=== PATIENT | female | born 1980 | race Asian ===

== ENCOUNTER 2022-03-06 16:12 | Emergency (ER) | payer BC, SELFPAY ==
--- NOTE | ~2022-03-06 | CT_ITS ---
EXAMINATION: CT ABDOMEN AND PELVIS WITH CONTRAST CLINICAL INFORMATION: Abdominal pain. Possible colitis. Possible cholecystitis. COMPARISON: None TECHNIQUE: Multidetector volumetric images were obtained from the superior aspect of the liver through the pubic symphysis following administration 85 mL of Omnipaque 350 intravenous contrast. Sagittal and coronal reformatted images were obtained on the technologist's workstation. Oral contrast: No This CT examination was performed using dose optimization techniques as appropriate, variously including the following: *Automated exposure control *Adjustment of mA and/or kV according to patient size (this includes techniques or standardized protocols for targeted exams where dose is matched to indication/reason for exam; i.e. extremities or head) *Use of iterative reconstruction technique DLP: 1027 mGy-cm FINDINGS: LUNG BASES: The visualized lung bases are unremarkable. LIVER, GALLBLADDER, AND BILIARY TREE: The liver is normal in size, shape, and attenuation. No focal hepatic lesion or biliary ductal dilatation is present. The gallbladder is unremarkable with no evidence of radiopaque gallstones, gallbladder wall thickening, or obvious pericholecystic inflammatory changes. PANCREAS: Unremarkable. SPLEEN: Unremarkable. ADRENAL GLANDS: Unremarkable. KIDNEYS AND URETERS: The right kidney demonstrates anterior rotation. Bilaterally symmetric nephrographic enhancement is noted. Making allowances for minimal early contrast excretion, no definitive urolithiasis visualized. No hydronephrosis or perinephric inflammatory changes. No ureterectasis. BLADDER: Unremarkable. GASTROINTESTINAL TRACT: The small and large bowel are unremarkable. The appendix is unremarkable. No free intraperitoneal fluid or gas collections. Normal sigmoid and small bowel mesenteries. Normal stomach. ABDOMINAL WALL: No significant hernia is appreciated. LYMPH NODES: Normal. VASCULAR: Unremarkable. PELVIC VISCERA: A 2.3 cm diameter rounded low-density focus suspicious for a unilocular cyst is present in the left ovary and does not warrant additional imaging follow-up on the basis of this examination. Uterus is grossly normal in appearance. OSSEOUS STRUCTURES: Minimal multilevel anterior endplate osteophytosis of the visualized thoracic and lumbar spine. CT/CT abdomen pelvis w con IMPRESSION: IV contrast-enhanced CT the abdomen pelvis: *No acute abnormalities identified. *Normal appearance of the gallbladder and biliary system. Of note, CT may be insensitive in the detection of cholelithiasis and acute cholecystitis. As clinically indicated, consider further evaluation with right upper quadrant abdominal ultrasound to assess for cholelithiasis and cholecystitis. No evidence of colitis. Normal appendix. No urolithiasis.
[2022-03-06 16:17] VITALS: BP 113/80; PULSE 98; RESP 18; TEMP 36.9; O2SAT 97; BMI 35.2
[2022-03-06 20:17] LABS: Basophils Percent Auto 0.3 % (0-2); Eosinophils Absolute Auto 0.3 X10*3/uL (0.0-0.4); Eosinophils Percent Auto 2.3 % (0-4); Hemoglobin 13.2 g/dl (12.0-16.0); Imm Gran Abs Auto 0.03 X10*3/uL (0.00-0.03); Imm Gran Pct Auto 0.3 % (0.0-0.4); Lymphocytes Absolute Auto 3.6 X10*3/uL (1.2-4.9); Lymphocytes Percent Auto 30.2 % (20-40); MANUAL DIFF FLAG NO; Mean Corpuscular HGB Conc 33.8 g/dl (31.0-35.0); Mean Corpuscular Hemoglobin 28.2 pg (27.0-33.0); Mean Corpuscular Volume 83.3 fL (80.0-98.0); Mean Platelet Volume 10.1 fL (9.4-12.3); Monocytes Absolute Auto 0.8 X10*3/uL (0.1-1.2); Monocytes Percent Auto 6.4 % (2-11); Neutrophils Absolute Auto 7.2 x10*3/uL (2.0-8.3); Neutrophils Percent Auto 60.5 % (45-73); Platelet Count 324 X10*3/uL (160-400); Red Blood Count 4.68 X10*6/uL (4.20-5.50); Red Cell Distribution Width 12.5 % (11.0-16.0); White Blood Count 11.9 X10*3/uL (4.8-10.8)
[2022-03-06 20:23] LABS: Appearance Urine CLEAR; Color Urine DK YELLOW; Glucose Urine UA NEG (NEG); Leukocyte Esterase Urine TRACE (NEG); Nitrite Urine NEG (NEG); PH 5.5 (5.0-8.0); Specific Gravity - Urine >= 1.030 (1.005-1.025); Urine Blood NEG (NEG); Urine Ketones NEG (NEG); Urine Protein NEG (NEG-TRACE)
[2022-03-06 20:26] LABS: UPreg QC Valid YES; Urine Pregnancy NEGATIVE (NEGATIVE)
[2022-03-06 20:32] LABS: Alanine Aminotransferase 30 U/L (0-31); Alkaline Phosphatase 74 U/L (39-117); Anion Gap 12 (12-20); Aspartate Amino Transferase 16 U/L (5-31); Bilirubin Total 0.4 mg/dL (0.0-1.0); Blood Urea Nitrogen 10 mg/dL (9-16); Calcium 10.3 mg/dL (8.4-10.2); Carbon Dioxide 23 mmol/L (22-29); Chloride 108 mmol/L (96-108); Estimated Glomerular Filt Rate > 60; Glucose Random 99 mg/dL (60-115); Potassium 4.1 mmol/L (3.3-5.1); Sodium 139 mmol/L (135-145); Total Protein 7.3 g/dL (6.5-8.0)
[2022-03-06 20:50] LABS: Bacteria Urine TRACE /LPF; RBC Urine 0-2 /HPF (0); Squamous Epithelial Cell Urine 1+ /LPF
--- NOTE | 2022-03-06 21:52 | ED.GENADULT ---
HPI - General Adult General Chief complaint: Nausea/Vomiting/Diarrhea Stated complaint: Cramping Nausea X 3 Days Time Seen by Provider: 03/06/22 18:09 Source: patient Mode of arrival: ambulatory Limitations: no limitations History of Present Illness HPI narrative: 42-year-old female with history of IBS for the past 2 years presents to ED for epigastric pain, acid burning sensation, nausea, vomiting and abdominal generalized pain with constipation for the past 3 days. patient states no relief with pepcid, Pepto-Bismol, or Tylenol. Patient states no dysuria, hematuria, flank pain, fever, or chills. Patient had bowel movements this morning. Related Data Previous Rx's Medication Instructions Recorded dicyclomine 20 mg tablet 20 mg PO QID 7 Days #28 tab 03/07/22 famotidine 20 mg tablet (Pepcid) 20 mg PO BID 10 Days #20 tab 03/07/22 Allergies Allergy/AdvReac Type Severity Reaction Status Date / Time amoxicillin Allergy Intermediate Hives Verified 03/06/22 16:17 Sulfa (Sulfonamide Allergy Intermediate Hives Verified 03/06/22 16:17 Antibiotics) aloe Allergy Mild Rash Verified 03/06/22 16:17 latex Allergy Mild Rash Verified 03/06/22 16:17 Review of Systems Review of Systems: Generalized cramping, abdominal pain, abdominal bloating, nausea, acid burning sensation, vomiting Yes all other systems are reviewed and are negative PMFSH Social History Social History Advance Directives: No Advance Directives Information Provided: Yes Patient : No Physical Exam ED Vital Signs: Vital Signs - 24 hr 03/06/22 16:17 03/07/22 00:19 Temperature 98.4 F 98.3 F Pulse Rate 98 81 Respiratory Rate 18 19 Blood Pressure 113/80 112/81 Pulse Oximetry 97 99 BMI result Body Mass Index 35.2 Const General: cooperative, healthy appearing, comfortable, no acute distress, well developed, alert, awake and Physically active Orientation/consciousness: patient oriented x3 HENMT Head: Yes normal to inspection, Yes No palpable skull fracture present, Yes normocephalic, Yes atraumatic and No abrasion Eyes General: appearance normal, both eyes and all related structures Neck Neck: Yes normal visual inspection, Yes full ROM, Yes no lymphadenopathy, Yes no meningeal signs, Yes trachea midline, Yes supple, No anterior neck swelling and No tender Chest Chest palpation & inspection: normal inspection of the chest and normal palpation of entire chest wall Resp Effort & Inspection: normal respiratory effort and able to speak in complete sentences Auscultation: clear to auscultation bilaterally Cardio Jugular venous distension: no JVD Heart sounds: S1 normal heart sound present and S2 normal heart sound present GI Inspection: Yes normal to inspection and No abdominal wall ecchymosis Palpation (GI): Soft to palpation, not firm, Tenderness to palpation present (GI) (generalized), no guarding and not rigid General: No CVA tenderness and Yes no CVA tenderness Back/Spine/Pelvis Back: no CVA tenderness, No CVA tenderness and No back tenderness Skin General skin exam: no rashes or lesions noted and elasticity normal Neuro General: patient oriented x3, gait normal, no meningeal signs and CN's II-XI intact bilaterally Cranial nerves: Yes CN's II-XII intact bilaterally Extrem General: Yes normal to inspection and Yes full ROM Psych Appearance: grossly normal, well kempt and not disheveled Course Course Course Narrative: labs are normal will send for abdominal CT scan. Pepcid, Bentyl, Maalox, and other x-rays ordered. Reevaluation(s) Reevaluation #1: CT scan came back normal. Patient will be discharged with Bentyl and Pepcid. Patient informed to call [employer] for follow-up. Patient not on any distress. Time: 01:45 Medical Decision Making MDM Narrative Medical decision making narrative: abdominal pain. IBS Lab Data Result diagrams: 03/06/22 20:08 03/06/22 20:08 Labs: Lab Results 03/06/22 03/06/22 03/06/22 Range/Units 20:08 20:08 20:08 WBC 11.9 H (4.8-10.8) X10*3/uL RBC 4.68 (4.20-5.50) X10*6/uL Hgb 13.2 (12.0-16.0) g/dl Hct 39.0 (37.0-47.0) % MCV 83.3 (80.0-98.0) fL MCH 28.2 (27.0-33.0) pg MCHC 33.8 (31.0-35.0) g/dl RDW 12.5 (11.0-16.0) % Plt Count 324 (160-400) X10*3/uL MPV 10.1 (9.4-12.3) fL Immature Gran % (Auto) 0.3 (0.0-0.4) % Neut % (Auto) 60.5 (45-73) % Lymph % (Auto) 30.2 (20-40) % [place] % (Auto) 6.4 (2-11) % Eos % (Auto) 2.3 (0-4) % Baso % (Auto) 0.3 (0-2) % Lymph # (Auto) 3.6 (1.2-4.9) X10*3/uL [place] # (Auto) 0.8 (0.1-1.2) X10*3/uL Eos # (Auto) 0.3 (0.0-0.4) X10*3/uL Baso # (Auto) 0.0 (0.0-0.2) X10*3/uL Abs Immat Gran (auto) 0.03 (0.00-0.03) X10*3/uL Absolute Neuts (auto) 7.2 (2.0-8.3) x10*3/uL Absolute Nucleated RBC 0.000 (0.0-0.012) X10*3/uL Nucleated RBC % (auto) 0.0 (0.0-0.2) /100WBC Sodium 139 (135-145) mmol/L Potassium 4.1 (3.3-5.1) mmol/L Chloride 108 (96-108) mmol/L Carbon Dioxide 23 (22-29) mmol/L Anion Gap 12 (12-20) BUN 10 (9-16) mg/dL Creatinine 0.73 (0.5-1.4) mg/dL Estim Creat Clear Calc 112.0 Estimated GFR > 60 Random Glucose 99 (60-115) mg/dL Calcium 10.3 H (8.4-10.2) mg/dL Total Bilirubin 0.4 (0.0-1.0) mg/dL AST 16 (5-31) U/L ALT 30 (0-31) U/L Alkaline Phosphatase 74 (39-117) U/L Troponin I High Sens (<3.5-17.0) ng/L Total Protein 7.3 (6.5-8.0) g/dL Albumin 4.0 (3.5-5.0) g/dL Lipase 33 (8-78) U/L Urine Color DK YELLOW Urine Appearance CLEAR Urine pH 5.5 (5.0-8.0) Ur Specific [place] >= 1.030 H (1.005-1.025) Urine Protein NEG (NEG-TRACE) MG/DL Urine Glucose (UA) NEG (NEG) MG/DL Urine Ketones NEG (NEG) MG/DL Urine Blood NEG (NEG) Urine Nitrite NEG (NEG) Ur Leukocyte Esterase TRACE H (NEG) Urine RBC 0-2 (0) /HPF Urine WBC 1-4 (0-4) /HPF Ur Squamous Epith Cells 1+ /LPF Urine Bacteria TRACE /LPF Urine Test (NEGATIVE) 03/06/22 03/06/22 Range/Units 20:08 23:12 WBC (4.8-10.8) X10*3/uL RBC (4.20-5.50) X10*6/uL Hgb (12.0-16.0) g/dl Hct (37.0-47.0) % MCV (80.0-98.0) fL MCH (27.0-33.0) pg MCHC (31.0-35.0) g/dl RDW (11.0-16.0) % Plt Count (160-400) X10*3/uL MPV (9.4-12.3) fL Immature Gran % (Auto) (0.0-0.4) % Neut % (Auto) (45-73) % Lymph % (Auto) (20-40) % [place] % (Auto) (2-11) % Eos % (Auto) (0-4) % Baso % (Auto) (0-2) % Lymph # (Auto) (1.2-4.9) X10*3/uL [place] # (Auto) (0.1-1.2) X10*3/uL Eos # (Auto) (0.0-0.4) X10*3/uL Baso # (Auto) (0.0-0.2) X10*3/uL Abs Immat Gran (auto) (0.00-0.03) X10*3/uL Absolute Neuts (auto) (2.0-8.3) x10*3/uL Absolute Nucleated RBC (0.0-0.012) X10*3/uL Nucleated RBC % (auto) (0.0-0.2) /100WBC Sodium (135-145) mmol/L Potassium (3.3-5.1) mmol/L Chloride (96-108) mmol/L Carbon Dioxide (22-29) mmol/L Anion Gap (12-20) BUN (9-16) mg/dL Creatinine (0.5-1.4) mg/dL Estim Creat Clear Calc Estimated GFR Random Glucose (60-115) mg/dL Calcium (8.4-10.2) mg/dL Total Bilirubin (0.0-1.0) mg/dL AST (5-31) U/L ALT (0-31) U/L Alkaline Phosphatase (39-117) U/L Troponin I High Sens < 3.5 (<3.5-17.0) ng/L Total Protein (6.5-8.0) g/dL Albumin (3.5-5.0) g/dL Lipase (8-78) U/L Urine Color Urine Appearance Urine pH (5.0-8.0) Ur Specific [place] (1.005-1.025) Urine Protein (NEG-TRACE) MG/DL Urine Glucose (UA) (NEG) MG/DL Urine Ketones (NEG) MG/DL Urine Blood (NEG) Urine Nitrite (NEG) Ur Leukocyte Esterase (NEG) Urine RBC (0) /HPF Urine WBC (0-4) /HPF Ur Squamous Epith Cells /LPF Urine Bacteria /LPF Urine Test NEGATIVE (NEGATIVE) Discharge Plan Discharge Clinical Impression: Abdominal pain, Gastroesophageal reflux disease, Irritable bowel syndrome Patient Disposition: Home, Self-Care Instructions: Irritable Bowel Syndrome (DC), Gastroesophageal Reflux Disease (ED), Abdominal Pain (ED) Additional Instructions: your blood work and CT scan of abdomen came back normal. You will need to follow with [employer] for re-evaluation. Return to the ED for worsening abdominal pain, fever, chills, nausea, vomiting, blood in stool, diarrhea, dysuria, hematuria, or any other concerning symptoms. Prescriptions: New famotidine [Pepcid] 20 mg tablet 20 mg PO BID 10 Days Qty: 20 0RF dicyclomine 20 mg tablet 20 mg PO QID 7 Days Qty: 28 0RF Stand Alone Forms: Work/School Release Print Language: Estonian
[2022-03-06 21:58] LABS: Lipase 33 U/L (8-78)
--- NOTE | 2022-03-06 22:35 | ECG_ITS ---
Test Reason : VOMITING Blood Pressure : / mmHG Vent. Rate : 080 BPM Atrial Rate : 080 BPM P-R Int : 166 ms QRS Dur : 082 ms QT Int : 382 ms P-R-T Axes : 044 004 020 degrees QTc Int : 440 ms Normal sinus rhythm Normal ECG No previous ECGs available Referred By: Junior Parrish Electronically Signed By:BRADLY MANUEL
[2022-03-06] MEDS: Magnesium Hydrox/Alum Hydrox 30 ML ORAL.SUSP PO (22:43)
[2022-03-06] MEDS: Famotidine/PF 20 MG/2 ML VIAL IVPUSH (22:43)
[2022-03-06] MEDS: Dicyclomine HCl 10 MG CAPSULE PO (22:43)
[2022-03-06] MEDS: PHENobarb/Hyoscy/Atropine/Scop 10 ML ELIXIR PO (22:43)
[2022-03-06 23:42] LABS: Troponin-I High Sensitivity < 3.5 ng/L (<3.5-17.0)
[2022-03-07 00:19] VITALS: BP 112/81; PULSE 81; RESP 19; TEMP 36.8; O2SAT 99
[2022-03-07] MEDS: iohexoL 350 MG/ML 100 ML INFUS..BTL 85 ML IV (01:00)
== END 2022-03-07 01:58 | disposition home or self-care (01) ==
PROVIDERS: Physician Assistant; Physician Assistant Medical; Emergency Provider Emergency Medicine
DX: K58.9 Irritable bowel syndrome, unspecified (principal); K21.9 Gastro-esophageal reflux disease without esophagitis; R10.13 Epigastric pain; K59.00 Constipation, unspecified; Z79.899 Other long term (current) drug therapy
CPT/HCPCS: 36415; 74177; 80053; 81001; 81025; 83690; 84484; 85025; 93005; 96374; 99284; Q9967

== ENCOUNTER 2022-04-05 12:00 | Outpatient (REF) | payer BC, SELFPAY ==
[2022-04-05 14:22] LABS: Hematocrit 40.7 % (37.0-47.0); Hemoglobin 13.5 g/dl (12.0-16.0); Mean Corpuscular HGB Conc 33.2 g/dl (31.0-35.0); Mean Corpuscular Hemoglobin 28.5 pg (27.0-33.0); Mean Corpuscular Volume 85.9 fL (80.0-98.0); Mean Platelet Volume 10.7 fL (9.4-12.3); Platelet Count 348 X10*3/uL (160-400); Red Blood Count 4.74 X10*6/uL (4.20-5.50); Red Cell Distribution Width 12.7 % (11.0-16.0); White Blood Count 10.6 X10*3/uL (4.8-10.8)
[2022-04-05 14:36] LABS: Alanine Aminotransferase 27 U/L (0-31); Albumin Level 3.8 g/dL (3.5-5.0); Alkaline Phosphatase 73 U/L (39-117); Anion Gap 13 (12-20); Aspartate Amino Transferase 13 U/L (5-31); Bilirubin Total 0.3 mg/dL (0.0-1.0); Blood Urea Nitrogen 11 mg/dL (9-16); Calcium 9.4 mg/dL (8.4-10.2); Carbon Dioxide 23 mmol/L (22-29); Chloride 107 mmol/L (96-108); Cholesterol 170 mg/dL; Estimated Glomerular Filt Rate > 60; Glucose Fasting 112 mg/dL (60-99); HDL Cholesterol 49 mg/dL; LDL Cholesterol Calculated 91 mg/dl; Potassium 4.4 mmol/L (3.3-5.1); Sodium 139 mmol/L (135-145); Total Protein 7.3 g/dL (6.5-8.0); Triglycerides 154 mg/dL
[2022-04-05 14:59] LABS: TSH reflex Free T4 1.58 uIU/mL (0.32-4.0)
[2022-04-05 15:15] LABS: Folate 19.3 ng/mL (> or = 4.0); Vitamin B12 581 pg/mL (200-900)
== END 2022-04-05 12:01 | disposition home or self-care (01) ==
LOC: HO.WFDLDS 12:00
PROVIDERS: Visit Provider Hospitalist
DX: Z00.00 Encounter for general adult medical examination without abnormal findings (principal)
CPT/HCPCS: 36415; 80053; 80061; 82607; 82746; 84443; 85027